=== PATIENT | female | born 1955 | race Caucasian/White ===

== ENCOUNTER 2018-05-04 09:09 | Outpatient (CLI) | payer MEDICAID | END 2018-05-04 23:59 | disposition home or self-care (01) | LOC: RAD 09:09 | DX: R55 Syncope and collapse (principal); R41.0 Disorientation, unspecified | CPT/HCPCS: 95819 ==

== ENCOUNTER 2025-07-15 10:46 | Inpatient (IN) | payer MEDICARE, MEDICAID ==
[2025-07-11 16:04] LABS: MEAN PLATELET VOLUME 8.7 FL (7.4-10.4); PRE OP HEMATOCRIT 34.1 % (35.0-45.0); PRE OP HEMOGLOBIN 11.6 g/dL (12.0-16.0); PRE OP PLATELET COUNT 273 X10'3 (140-440); PRE OP WHITE BLOOD COUNT 9.0 10'3 (4.8-10.8); RED CELL DISTRIBUTION WIDTH 13.5 % (11.5-14.5)
[2025-07-11 16:17] LABS: CREATININE 1.38 MG/DL (0.40-0.90); PRE OP ALT 21 U/L (30-65); PRE OP ANION GAP 6 (8-16); PRE OP AST 12 U/L (10-37); PRE OP BILIRUB, TOTAL 0.3 MG/DL (0.0-1.0); PRE OP GLUCOSE 115 MG/DL (70-104); PRE OP POTASSIUM 4.0 MMOL/L (3.4-5.1); PRE OP SODIUM 137 MMOL/L (135-145); TOTAL CARBON DIOXIDE 27.4 MMOL/L (24-32); eGFR 38 ML/MIN
[~2025-07-15] VITALS: Ht 157.5 cm; Wt 101.7 kg
[2025-07-15] VITALS (24 sets, daily range): BP systolic 94–172; BP diastolic 52–106; PULSE 62–100; RESP 10–22; TEMP 97.4–98.7; O2SAT 94–98
[2025-07-15] MEDS: ceFAZolin 2gm/dext,iso 50mL 50 ML IV ONE (05:30)
[~2025-07-15 10:46] MED LIST: ABAC1TAB14 PO; AMLO2.5T5 PO; ASPI-101 PO; ATOR40TA72 PO; AZEL6DRO5 EACHEYE; CALC600T35 PO; CHOL500061 PO; CYAN500T71 PO; CYCL-1 PO; DICL20GE TOP; DULO60CA65 PO; FLUT16SP26 BOTHNARES; FOLI1TAB27 PO; HYDR-3972 PO; KEN0.1O TP; LIDO700A47 TD; LORA10TA7 PO; PANT40TA54 PO; PROP10TA10 PO; QUET100T34 PO; TOPI-95 PO
[2025-07-15] MEDS ORDERED: ROPIVAcaine 0.5% (5mg/ml) 30ml vial ONE ×2 (10:50→13:59)
[2025-07-15] MEDS: VANCOMYCIN/H2O 1.5g/300mL PB 300 ML IV ONE (11:33)
[2025-07-15] MEDS: ringers solution, lacted 1,000 ML IV SCH ×2 (11:33→13:50)
[2025-07-15] MEDS ORDERED: BUPIVACAINE/MELOXICAM 14 ML VIAL IL ONE (12:03)
[2025-07-15] MEDS ORDERED: fentaNYL/PF 50MCG/1 ML 2ML syringe ONE (12:07)
[2025-07-15] MEDS ORDERED: MIDAZolam 1 MG/ML 5ML VIAL ONE (12:07)
[2025-07-15] MEDS ORDERED: PCA WASTE DOCUMENTATION 1 MG ML MC SCH (12:15)
[2025-07-15] MEDS ORDERED: oxyCODONE IR 5mg (immed. release) tablet PO PRN (12:15)
[2025-07-15] MEDS ORDERED: ondansetron/PF 4mg/2ml inj IV PRN ×2 (12:15→13:50)
[2025-07-15] MEDS ORDERED: propofol inj 20 ML IV ONE (12:30)
--- NOTE | 2025-07-15 12:45 | ELECTROCARDIOGRAPH REPORT ---
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 STEFFEN Jennings Measurements Intervals [place] Rate: 69 P: 66 [place]: 194 QRS: 25 QRSD: 84 T: 33 QT: 413 QTc: 443 Interpretive Statements Sinus rhythm Abnormal R-wave progression, early transition Electronically Signed On 07-15-2025 20:21:[address] STEFFEN Jennings Please click the below link to view image of tracing.
[2025-07-15] MEDS ORDERED: enalaprilat 1.25mg/ml 2ml vial IV PRN (13:50)
[2025-07-15] MEDS ORDERED: labetalol 20mg/4ml (5mg/ml) syringe IV PRN (13:50)
[2025-07-15] MEDS ORDERED: meperidine/PF 25mg/ml syringe IV PRN ×3 (13:50)
[2025-07-15] MEDS ORDERED: morphine 4 MG/ML inj SYRINge IV PRN (13:50)
--- NOTE | 2025-07-15 13:51 | ANESTHESIA RECORDS ---
Nerve Block Providers to CC ~ Diagnosis: Nerve Block requested by: VIOLETTA SANCHEZ MD Neuraxial/Peripheral Nerve Block requested for Post-operative analgesia by Physician above DIAGNOSIS: Post-operative pain. (Body Area) Shoulder: [ ] Arm: [ ] Hand: [ ] Hip: [ ] Knee: [____Right ] Ankle: [ ] Foot: [ ] Leg: [ ] Abdomen: [ ] Other: [ ] Post-operative pain expected to be/is inadequately managed by oral or IV medicines. Regional anesthetic expected to facilitate rehabilitation and/or discharge from facility. Other:[ ] Procedure Performed: Femoral / Saphenous: Right Time out Done?: Yes Time of Time out: 14:05 Procedure Details: PROCEDURE DETAILS: Risks, benefits and alternatives explained Informed consent obtained, and patient wishes to proceed Conscious sedation with indicated monitors Patient positioned, pertinent anatomy defined, sterile technique used Needle used: [ ] 3 1/8 inch Stimuplex Ultra 22ga [ ] 4 inch Stimuplex Ultra 20ga [x ] 6 inch Stimuplex Ultra 20ga [ ] 6 inch, Quikbloc over the needle catheter set 20ga [ ] 4 inch Quikbloc over the needle catheter set 20ga [ ]Other: [ ] Loss of twitch @ [ N/A ]mA [x ] Single Injection [ ] Catheter Ultrasound Guidance Used: [x ] Yes [ ] No Attempts:[ once ] Medicines injected: [x ]Clonidine Amt:[ 80 mcgs ] [x ]Dexamethasone Amt:[____3 mgs ] [x ]Ropivacaine Amt:[___0,5% 20 cc ] [x ]Bupivacaine Amt:[____0.375% 16 cc ] [ ]Lidocaine Amt:[ ] [ ]Exparel 1.33%:[ ] [ ]Epinephrine Amt[ ] [ ]Other: [ ] Intermittent aspiration during local anesthetic administration No symptoms of intraneural or intravenous injection Patient tolerated procedure well Comments Rt Adductor Canal blk Procedure done after surgery under Spinal anesthesia. Pt supine with Rt leg rotated to Rt slightly. Easy visualization of Adductor Canal with ultra sound anterolateral to Femoral artery at the junction of upper and middle third of thigh. Able to see the tip of the needle and injected local anesthetic with the ultrasound. 5 cc of local anesthetic is injected into nerve to Vastus medialis and few cc is injected into ant femoral cutaneous nerves. No Pain or discomfort during injection. Rt IPACK Block: (Infiltration Between Popliteal Artery and Capsule of the Knee). Knee is flexed with the patient in supine position. Using a curvilinear probe placed under the knee, Popliteal vessels are identified. Block needle is inserted from Medial part of the knee about the Patellar level in between popliteal vessels and femoral condyles (capsule of knee) and 20 ml of local anesthetic solution is infiltrated in the space. SIMA QUINN MD Jul 15, 2025 13:51
[2025-07-15] MEDS ORDERED: cloNIDine hcl/PF 100mcg/ml inj ONE (13:54)
[2025-07-15] MEDS ORDERED: 0.9 % SODIUM CHLORIDE 10 ML VIAL ONE (13:59)
[2025-07-15] MEDS ORDERED: BUPIVAcaine/PF 7.5mg/ml (0.75%) 10ml vial ONE (13:59)
--- NOTE | 2025-07-15 14:25 | OPERATIVE REPORT ---
Operative Report Operative Report Procedure: Computer-assisted, robotically-assisted, right total knee arthroplasty. Surgeon: Dr. Ramon Delgado Landscaping Supervisor: Maryam torres PA-C Anesthesiologist: Dr. Pritchett Anesthesia: General anesthetic and regional block Indications: 70-year-old female who has chronic osteoarthritis of the right knee with severe pain and limitation of activities despite extensive non- operative management. This patient has had extensive conservative treatment of knee joint arthritis, including rest, external joint support, anti-inflammatory medications, physical therapy, and corticosteroid injection. Physical therapy has been provided, along with a home exercise program prior to making the decisi on to proceed with surgical treatment. This therapeutic intervention did not provide any substantial relief of symptoms or improvement in function. The patient has been utilizing a cane, set of crutches, or walker, for more than 3 months prior to deciding to proceed with surgery. These interventions have not provided sufficient relief of pain to allow improvement in function. The patient has utilized non-steroidal anti-inflammatory medications for relief of pain over an extended period of time (more than 2 months), and has not experienced sufficient improvement in symptoms. Despite these treatments, this patient has continued difficulties with pain and limited function. They are unable to walk long distances, do vigorous activities, sit or sleep comfortably. Total knee replacement is the next reasonable step in terms of treatment. 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 This facilitated operative exposure, manipulation and handling of tissues, placement of any implants, and accomplishment of wound closure. Findings: There was indeed a very severely arthritic knee, with loss of cartilage, exposed bone, and marginal osteophytes. The medial compartment was particularly bad. A for degree varus deformity and 5 degree extension deformity were measured preoperatively. Post operative alignment was 1 degree varus, and 0 extension. Complications: None Estimated Blood Loss: 150 mL Implants: A Damon Persona CR total knee system was utilized with a size seven narrow right cemented femoral component, and a size D right cemented tibial component. A 10 mm medial congruent right tibial insert was utilized with a smart stem. The [employer] robotically assisted total knee arthroplasty system and computer was utilized. Procedure: The risks, benefits, expected results, and possible complications of the planned procedure had been explained to the patient and informed consent obtained. The patient was taken to the operating room and underwent a generall anesthetic. The patient was placed in the supine position on the operating table, and the right leg was prepped and draped in the usual fashion. A timeout was taken prior to surgery, confirming patient identification, operative side operative site, planned procedure, administration of pre-operative antibiotics, site marking, and presence of all necessary implants and instruments, x-rays and equipment. A standard anterior, slightly mediall approach was performed with a medial parapatellar arthrotomy, and a VMO split. Time was then spent removing excessive synovial tissue and exposing the medial and lateral gutters, as well as moving the anterior sections of the residual menisci. The patella was mobilized to be able to be retracted laterally. This gave exposure of the anterior aspect of the knee. Attention was then directed to the patella. The patella was in excellent condition so we decided not to resurface the patella. Infrared arrays were then placed on the femur and the tibia. Utilizing the [employer] computer system, the hip, knee, and ankle were landmarked in usual fashion. The initial alignment measurements were then taken confirming the above listed deformity. Surgical planning was then carried out on the computer, confirming alignment of components, sizing, and gap balancing. Appropriate soft tissue releases were performed. The robot was then utilized to make the distal femoral cut. The femur was prepared in 4 degrees of flexion and neutral coronal alignment. The distal femoral 4 in 1 block was placed with the robot, and the remaining femoral cuts also performed. The robot was then utilized to cut the proximal tibia in 5 degrees of flexion and neutral coronal alignment. The computer was then utilized to check longitudinal alignment and soft tissue balance, and this confirmed excellent alignment. Next the dynamic balancing block was utilized to check and adjust soft tissue balancing. The trial implant was sized and properly rotated, and the peg drilling performed. Final check of alignment and balancing was then carried out with trials in place, as well as final removal and cleaning up of soft tissue such as meniscal remnants and osteophytes. A tourniquet was inflated to 300 mmHg after exsanguination of the leg with an Esmarch. Cement was then mixed; 2 batches were utilized, mixed together, for the tibia, the femur and the patella. The cut surface of the tibia was thoroughly lavaged with the pulsating lavage and then dried. The tibia was impacted with the mallet, seating it quite nicely in its proper rotational alignment. Excess cement was removed from around the margins. The femoral cuts were cleaned with a pulsating lavage and then dried with the lap sponges, and the femur was impacted into position with a mallet. Excess cement was removed around the margins of the components as the cement cured. Pressure was held on the femoral component and tibia by placing a spacer and bringing the leg to full extension and applying axial and hyperextension force. Upon complete hardening of all cement, the knee was inspected and excess cement removed. We lavaged the knee to wash out any debris and checked to make sure we had no impinging cement. The trial spacer was replaced and overall alignment checked with computer, ensuring we had full extension of the knee, and appropriate medial and lateral soft tissue balance, as well as flexion and extension balance. The tourniquet was deflated and hemostasis obtained with electrocautery. Tourniquet time was nine minutes. The wound was irrigated thoroughly one more time and then dried with lap sponges. The final tibial spacer was impacted and locked into the locking mechanism without difficulty. I lavaged the knee to wash out any debris. The tibial trial spacer was replaced and overall alignment checked with computer, ensuring we had full extension of the knee, and appropriate medial and lateral soft tissue balance, as well as flexion and extension balance. The wound was irrigated thoroughly one more time and then dried with lap sponges. The final tibial spacer was impacted and locked into the locking mechanism without difficulty. The retinacular incision was closed with #2 Quill suture, and subcutaneous tissue closed with #2-0 Vicryl suture. Skin was closed with 4-0 Monocryl suture. A sterile dressing was applied, and the patient was returned to the recovery room in satisfactory condition. RAMON DELGADO MD Jul 15, 2025 14:25
[2025-07-15] MEDS: HYDROcodone/acetaminophen 10/325mg tab PO PRN (17:42)
[2025-07-15] MEDS: ceFAZolin 1GM/D5W- ADD-VANTAGE 50 ML IV SCH (17:43)
[2025-07-15] MEDS ORDERED: glucagon, human recombinant 1mg kit SUBCUT PRN (19:50)
[2025-07-15] MEDS ORDERED: dextrose 50%-water 50ml dispensing syringe IV PRN ×2 (19:50)
[2025-07-15] MEDS ORDERED: DEXTROSE 15 GM of carb/4 tabs (each vial/BOTTLE has 4 tablets) PO PRN ×2 (19:50)
[2025-07-15] MEDS: propranolol 10mg tablet PO SCH (20:20)
[2025-07-15] MEDS: duloxetine 30mg CAPSULE.DR PO SCH (20:22)
[2025-07-15] MEDS: INSULIN LISPRO 100 UNIT/ML INSULN.PEN MULTI-DOSE SQ SCH (21:00)
[2025-07-15] MEDS: HYDROmorphone inj. 0.5 MG/0.5 ML DISP.SYRIN IV PRN (22:14)
[2025-07-15] MEDS: vancomycin/NS 1 GM ADD-VANTAGE 250 ML IV ONE (23:43)
[2025-07-16 01:46] VITALS: BP 119/61; PULSE 90; RESP 18; TEMP 97.9; O2SAT 97
[2025-07-16] MEDS: oxyCODONE IR 5mg (immed. release) tablet PO PRN (03:07)
[2025-07-16 06:00] VITALS: BP 111/71; PULSE 91; RESP 15; TEMP 98; O2SAT 97
[2025-07-16] MEDS: DOCUMENT DATE & TIME OF BETA-BLOCKER PO ONE (07:04)
[2025-07-16 07:15] LABS: TOTAL CARBON DIOXIDE 24.7 MMOL/L (24-32)
[2025-07-16 07:21] LABS: MEAN PLATELET VOLUME 9.5 FL (7.4-10.4); RED CELL DISTRIBUTION WIDTH 13.3 % (11.5-14.5)
[2025-07-16 08:00] VITALS: RESP 18; O2SAT 97
[2025-07-16] MEDS: calcium carbonate 500mg tablet PO SCH (08:00)
[2025-07-16] MEDS: DOLUTEGRAVIR PO SCH (08:00)
[2025-07-16] MEDS: ABACAVIR PO SCH (08:00)
[2025-07-16] MEDS: LAMIVUDI PO SCH (08:00)
[2025-07-16] MEDS: cholecalciferol (vitamin D3) 1,000 unit (25mcg) tablet PO SCH (09:18)
[2025-07-16] MEDS: cyanocobalamin 500mcg tablet PO SCH (09:18)
[2025-07-16] MEDS: pantoprazole 40mg Tablet.DR PO SCH (09:19)
[2025-07-16 10:00] VITALS: BP 101/64; PULSE 90; RESP 18; TEMP 97.8; O2SAT 97
[2025-07-16 11:17] VITALS: O2SAT 97
--- NOTE | 2025-07-16 13:25 | DISCHARGE SUMMARY ---
Discharge Summary Ortho [facility] ~ Discharge Summary *Problems/Diagnosis: (1) Osteoarthritis of right knee Status: Chronic Admission Diagnosis: s/p Right TKA Discharge Diagnosis\Comment: Same Operations\Procedures Right total knee arthroplasty Consultants: None Complications: None Condition on DC: Stable Discharge Summary: On the day of admission the patient was taken to the operating room where she underwent a right total knee replacement. She tolerated this procedure well and on the following day was doing well for discharge. She was discharged home in the care of her family and she will return to see me in about two weeks for a recheck Total Time Spent on D/C: Up to 30 Minutes Medications Home Meds: Home Medications Active Reported Lidocaine 5 % Adh..patch 1 Patch TD DAILY Voltaren Arthritis Pain (Diclofenac Sodium) 1 % Gel..gram. 1 Applic TOP DAILY PRN Inderal* (Propranolol HCl) 10 Mg Tablet 1 Tab PO Q12H 30 Days Kenalog 0.1% Crm* (Triamcinolone Acetonide) 1 Applic Tube 1 Applic TP BID Azelastine HCl 0.05 % Drops 1 Drop EACHEYE BID Fluticasone Propionate 50 Mcg/Actuation [place].susp 1 Sprays BOTHNARES DAILY Aspirin 325 Mg Tablet 1 Tab PO HS 30 Days Topiramate 50 Mg Tablet 150 Mg PO Q12H 30 Days Vitamin D3 (Cholecalciferol (Vitamin D3)) 125 Mcg (5000 Unit) Tab.rapdis 1 Tab PO DAILY 30 Days Duloxetine HCl 60 Mg Capsule.dr 1 Cap PO HS 30 Days Calcium (Calcium Carbonate) 600 Mg Tablet 1 Tab PO DAILY Vitamin B-12* (Cyanocobalamin) 500 Mcg Tablet 1 Tab PO DAILY Atorvastatin Calcium 40 Mg Tablet 1 Tab PO HS Quetiapine Fumarate 100 Mg Tablet 1 Tab PO HS Amlodipine Besylate 2.5 Mg Tablet 1 Tab PO DAILY Folic Acid* (Folic Acid) Y Tab 1 Tab PO DAILY Pantoprazole Sodium 40 Mg Tablet.dr 1 Tab PO DAILY Cyclobenzaprine* (Cyclobenzaprine HCl) 10 Mg Tablet 1 Tab PO BID Hydrocodon-Acetaminophn 10-325 tablet (Acetaminophen/Hydrocodone Bitart) 10mg- 325mg Tablet 1 Tab PO BID PRN Loratadine 10 Mg Tablet 1 Tab PO DAILY Triumeq 600-50-300 mg Tablet (Abacavir/Dolutegravir/Lamivudi) 1 Each Tablet 1 Tab PO DAILY BROGUHT IN BOTTLE..STORED IN PHARMACY Problem Qualifiers (1) Osteoarthritis of right knee: Qualified Codes: M17.11 - Unilateral primary osteoarthritis, right knee VIOLETTA SANCHEZ MD Jul 16, 2025 13:25
[2025-07-16 13:56] VITALS: RESP 18
== END 2025-07-16 14:00 | disposition home or self-care (01) | DRG 470 ==
LOC: PAS 10:46 → PAS IN 10:58 → ORTHO 4S 15:20
PROVIDERS: ADMIT Orthopaedic Surgery; ATTEND Orthopaedic Surgery
PROC: 8E0Y0CZ Robotic Assisted Procedure of Lower Extremity, Open Approach (ICD-10-PCS; 2025-07-15)
PROC: 3E0T3BZ Introduction of Anesthetic Agent into Peripheral Nerves and Plexi, Percutaneous Approach (ICD-10-PCS; 2025-07-15)
PROC: 3E0T33Z Introduction of Anti-inflammatory into Peripheral Nerves and Plexi, Percutaneous Approach (ICD-10-PCS; 2025-07-15)
PROC: 0SRC0J9 Replacement of Right Knee Joint with Synthetic Substitute, Cemented, Open Approach (ICD-10-PCS; principal; 2025-07-15 11:52)
DX: M17.11 Unilateral primary osteoarthritis, right knee (principal); F31.9 Bipolar disorder, unspecified; K21.9 Gastro-esophageal reflux disease without esophagitis; I10 Essential (primary) hypertension; E11.9 Type 2 diabetes mellitus without complications; E78.5 Hyperlipidemia, unspecified; G47.30 Sleep apnea, unspecified; Z79.899 Other long term (current) drug therapy
CPT/HCPCS: 36415; 80051; 80053; 82948; 83036; 85025; 93005; 97110; 97116; 97161; 97530; A4215; A6449; A7000; C1713; C1776; C9088; G0378; J0690; J0735; J1171; J1815; J2250; J2704; J2795; J3010; J3373; J3375; J3490; J7120